=== PATIENT | male | born 1960 | race Caucasian/White ===

== ENCOUNTER → 2017-10-31 14:12 | Outpatient (CLI) | payer MEDICARE ==
[2014-10-30 08:29] VITALS: BMI 22.4
[~2017-10-31 14:12] MED LIST: BACLOFEN10 MG PO; CARDURA2 MG PO; HYDROCODON-ACE1 EAC9 PO; MORPHINE SULFAT30 M4 PO; NEURONTIN 300300 MG PO
== END | disposition home or self-care (01) ==
LOC: D.RAD 14:12
DX: R31.9 Hematuria, unspecified (principal)

== ENCOUNTER → 2017-10-31 16:03 | Outpatient (CLI) | payer MEDICARE ==
[2014-10-30 08:29] VITALS: BMI 22.4
== END | disposition home or self-care (01) ==
LOC: D.LABREF 16:03
DX: N39.0 Urinary tract infection, site not specified (principal)

== ENCOUNTER → 2018-03-26 15:48 | Outpatient (CLI) | payer MEDICARE ==
[2014-10-30 08:29] VITALS: BMI 22.4
== END | disposition home or self-care (01) ==
LOC: D.CT 15:48
DX: R10.9 Unspecified abdominal pain (principal)

== ENCOUNTER → 2018-04-13 08:23 | Outpatient (CLI) | payer MEDICARE ==
[2014-10-30 08:29] VITALS: BMI 22.4
== END | disposition home or self-care (01) ==
LOC: D.CT 08:00
DX: R10.9 Unspecified abdominal pain (principal)